=== PATIENT | female | born 1950 | race Caucasian/White ===

== ENCOUNTER 2024-08-05 11:48 | Outpatient (CLI) | payer MEDICARE, SELFPAY ==
[2024-08-05 13:30] LABS: Basophils Absolute Auto 0.1 K/mm3 (0.0-0.1); Eosinophils Absolute Auto 0.2 K/mm3 (0-0.3); Eosinophils Percent Auto 3.2 % (0-4.4); Hematocrit 41.5 % (37.0-47.0); Hemoglobin 13.7 g/dL (12.0-15.0); Immature Granulocyte Absolute 0.02 K/mm3 (0.00-0.031); Immature Granulocyte Percent A 0.3 % (0-0.5); Lymphocytes Absolute Auto 2.65 K/mm3 (0.9-3.2); Lymphocytes Percent Auto 36.4 % (18.3-44.2); Mean Corpuscular Hemoglobin 30.1 pg (26-34); Mean Corpuscular Volume 91.2 fl (80-100); Mean Platelet Volume 9.7 fl (7.4-10.4); Monocytes Absolute Auto 0.6 K/mm3 (0.1-0.6); Monocytes Percent Auto 8.8 % (2.6-8.5); Neutrophils Absolute Auto 3.7 K/mm3 (1.3-6.7); Neutrophils Percent Auto 50.3 % (45.5-73.1); Platelet Count Result 380 k/mm3 (150-375); Red Blood Count 4.55 M/mm3 (4.2-5.4); Red Cell Distribution Width 13.2 % (11.5-14.5); White Blood Count 7.3 K/mm3 (4.5-10.0)
[2024-08-05 13:49] LABS: Alanine Aminotransferase 38 U/L (6-35); Albumin Level 4.8 g/dL (3.5-5.1); Alkaline Phosphatase 104 U/L (38-126); Anion Gap 13 mmol/L (4-12); Aspartate Amino Transferase 56 U/L (14-36); Bilirubin,Total 0.8 mg/dL (0.2-1.3); Blood Urea Nitrogen 18 mg/dL (7-17); Calcium 9.9 mg/dL (8.4-10.2); Carbon Dioxide 23 mmol/L (22-30); Chloride 105 mmol/L (98-107); Cholesterol 138 mg/dL (0-200); Estimated Glomerular Filt Rate 41; Glucose 87 mg/dL (65-110); HDL Direct 49 mg/dL; Potassium 4.4 mmol/L (3.4-5.0); Sodium 141 mmol/L (137-145); Triglycerides 73 mg/dL (<150)
[2024-08-05 14:00] LABS: LDL Cholesterol Direct 60 mg/dL
[2024-08-05 14:25] LABS: Vitamin D 25 Hydroxy 35.6 ng/mL
[2024-08-05 14:57] LABS: Hemoglobin A1C 6.3 % (<5.7)
== END 2024-08-05 11:49 | disposition home or self-care (01) ==
PROVIDERS: PCP Clinical Nurse Specialist; Visit Provider Clinical Nurse Specialist
DX: R73.01 Impaired fasting glucose (principal); Z13.228 Encounter for screening for other metabolic disorders; E78.5 Hyperlipidemia, unspecified; I10 Essential (primary) hypertension; E07.9 Disorder of thyroid, unspecified; E55.9 Vitamin D deficiency, unspecified
CPT/HCPCS: 36415; 80053; 80061; 82306; 83036; 84443; 85025

== ENCOUNTER 2024-09-05 12:44 | Outpatient (CLI) | payer MEDICARE, SELFPAY ==
--- OUTSIDE RECORDS SUMMARY | 2024-09-05 12:47 | XMS_ITS | Encounter Summary ---
Author Organization [employer] Address 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
--- OUTSIDE RECORDS SUMMARY | 2024-09-05 12:47 | XMS_ITS | Encounter Summary ---
Author Organization [facility] Address [address] [place] [address] Care Team Providers Care Grain Operations Manager Name Role Phone Gloria Campbell MD Primary Care Provid er Encounter Details Date Type Department Care Team (Latest Contact Info) Description 11/12/2023 Lab Requisition [facility] General [facility] [place] [address] [place] [address] Gloria Campbell MD [address] [place] [address] Atherosclerotic heart disease of [place] coronary artery without angina pectoris; Hypertensive chronic kidney disease with stage 1 through stage 4 chronic kidney disease, or unspecified chronic kidney disease; Other chest pain; Shortness of breath Social History Tobacco Use Types Packs/Day Years Used Date Smoking Tobacco: Never Smokeless Tobacco: Never Alcohol Use Standard Drinks/Week Comments Yes 2 (1 standard drink = 0.6 oz pur e alcohol) occasionally Financial Resource Strain Answer Date R ecorded How hard is it for you to pa y for the very basics like food, housing, medical care, and heating? Not hard at all 11/04/2020 Food Insecurity Answer Date Recorded In the past 12 months, have you worried that your food would run out before you had money to buy more? Never true 11/04/2020 In the past 12 months, did y ou run out of food and didn't have money to buy more? Never true 11/04/2020 Transportation Needs Answer Date Record ed In the past 12 months, has l ack of transportation kept you from medical appointments or from getting medications? 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 Gender Identity Not on file Sexual Orientation Not on file Occupation Industry Job Start Date Job End Date Not on file Not on file Not on file Not on file documented as of this encounter Plan of Treatment Not on file documented as of this encounter Procedures Procedure Name Priority Date/Time Associated Diagnosis Comments D-DIMER Stat 11/12/2023 9:35 AM CDT Atherosclerotic heart disease of [place] coronary artery without angina pectoris Hypertensive chronic kidney disease with stage 1 through stage 4 chronic kidney disease, or unspecified chronic kidney disease Other chest pain Shortness of breath BRAIN NATRIURETIC PEPTIDE, BNP OR PROBNP Stat 11/12/2023 9:35 AM CDT Atherosclerotic heart disease of [place] coronary artery without angina pectoris Hypertensive chronic kidney disease with stage 1 through stage 4 chronic kidney disease, or unspecified chronic kidney disease Other chest pain Shortness of breath documented in this encounter Results * BRAIN NATRIURETIC PEPTIDE, BNP OR PROBNP (11/12/2023 9:35 AM CDT) PROBNP, N TERMINAL 101 <124 pg/mL 2023 11:36 AM CDT [facility] Comment: Reference values for screening purposes based on supervisor drying and softening's recommendation: Patients less than 75 years: <125 pg/mL Patients 75 years and older: <450 pg/mL Reference values for determination of acute congestive heart failure in dyspneic patients based on PRIDE study (Am J Cardiol 2005;95:948): Patients less than 50 years: <450 pg/mL (Negative predictive value= 99%) Patients 50 years and older: <900 pg/mL (Negative predictive value= 92%) Rule out cutpoint, all ages: <300 pg/mL (Negative predictive value= 99%) Blood 11/12/2023 9:35 AM CDT 11/12/2023 11:20 AM CDT Gloria Campbell MD CHEMISTRY ORDERABLES Final Result [facility] [employer] [facility] CLIA# [id number] [address] [place] [address] * D-DIMER (11/12/2023 9:35 AM CDT) D-DIMER QUANT <0.27 <0.50 ug/mL FEU 11/12/2023 11:37 AM CDT [facility] [employer] [facility] Blood 11/12/2023 9:35 AM CDT 11/12/2023 11:20 AM CDT Narrative [facility] [employer] [facility] - 11/12/2023 11:37 AM CDT D-Dimer assay cutoff value for exclusion of DVT and/or PE is <0.50 ug/mL FEU. As D-Dimer levels increase naturally with age, age stratification for patients over 50 is potentially more appropriate in determining whether a patient should undergo further evaluation for DVT and/or PE than a general cutoff of 0.50 ug/mL FEU. Clinical consideration is recommended. Age Stratified Cutoff Values: 50-60 years: 0.50-0.60 ug/mL FEU 61-70 years: 0.61-0.70 ug/mL FEU 71-80 years: 0.71-0.80 ug/mL FEU Gloria Campbell MD HEMATOLOGY ORDERABLE S Final Result [facility] [employer] [facility] CLIA# [id number] [address] [place] [address] documented in this encounter Visit Diagnoses Diagnosis Atherosclerotic heart disease of [place] coronary artery without angina pectoris Coronary atherosclerosis of [place] coronary artery Hypertensive chronic kidney disease with stage 1 through stage 4 chronic kidney disease, or unspecified chronic kidney disease Other chest pain Shortness of breath documented in this encounter Additional Health Concerns Assessment Noted Time PHQ-9 Depression Total Score: 2 10/08/19 24 8:49 AM CDT documented as of this encounter Care Teams Grain Operations Manager Relationship Specialty Start Date End Date Gloria Campbell MD [address] [place] [phone] PCP - General 08/01/12 07/10/24 documented as of this encounter
--- OUTSIDE RECORDS SUMMARY | 2024-09-05 12:47 | XMS_ITS | Encounter Summary ---
Author Organization [facility] Address [address] [place] [address] Care Team Providers Care Developer Advisor Name Role Phone Gloria Campbell MD Primary Care Provid er Encounter Details Date Type Department Care Team (Late st Contact Info) Description 08/24/2006 Outpatient Historical [facility] Support Services [address] [place] [address] Neal Acevedo MD 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
--- OUTSIDE RECORDS SUMMARY | 2024-09-05 12:47 | XMS_ITS | Encounter Summary ---
Author Organization [facility] Address 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 Gender Identity Not on file Sexual Orientation Not on file documented as of this encounter Plan of Treatment Not on file documented as of this encounter Procedures Procedure Name Priority Date/Time Associated Diagnosis Comments IGE Routine 01/31/2008 2:00 PM CDT XR CHEST PA AND LATERAL 2 VW Routine 01/31/2008 1:15 PM CDT XR SINUSES 3+ VW Routine 01/31/2008 1:15 PM CDT documented in this encounter Results * IGE (01/31/2008 2:00 PM CDT) IGE 8 <VB=603 kU/L [facility] Comment: Lab test performed by: [employer] [facility] [id number] [id number] ROBER FRAZIER MD Blood specimen (specimen) 01/31/2008 2:00 PM CDT 01/31/2008 2:01 PM CDT Narrative INTERFACE SYSTEM - 02/04/2008 8:07 PM CDT Call [phone] us History Conversion CHEMISTRY ORDERABLES Final Re sult INTERFACE SYSTEM Refer to clinic/hospital department [facility] CLIA# [id number] [address] [place] [address] * XR SINUSES 3+ VW (01/31/2008 1:15 PM CDT) Anatomical Region Laterality Modality Head Other 01/31/2008 1:15 PM CDT Narrative 01/31/2008 4:32 PM CDT [address] [address] Admit Date: 01/31/2008 DILLONCARLOS MeierINE Sex: F Admit Prov: DOCTOR, NOT O Date: 1950 Primary Care Prov: CLINT GARZA CMRN: [id number] Room: LAB-B SSN: [id number] IMAGING SERVICES Ordering Prov: N/A Accession Number: [id number] Interpretation SINUSES COMPLETE 01/31/2008 History: Allergy. 3 views of paranasal sinuses are performed. The frontal and ethmoid sinuses appear clear. The maxillary sinuses demonstrate no definite evidence of air-fluid level or acute process. Sphenoid sinuses are only seen on lateral view and appear clear. Conclusion: No definite evidence of sinusitis. If sinusitis is still suspected, screening sinus CT is recommended. . Dictated by: BALJIT JIMENES 01/31/2008 13:33 Electronically signed by: BALJIT JIMENES 01/31/2008 16:31 Transcribed: 01/31/2008 16:14 AMK Procedure Note Baljit Jimenes DO - 01/31/[address] [address] Admit Date: 01/31/2008 ANURAG CARRANZA Sex: F Admit Prov: DOCTOR, NOT O Date: 1950 Primary Care Prov: CLINT GARZA CMRN: [id number] Room: LAB-B SSN: [id number] IMAGING SERVICES Ordering Prov: N/A Interpretation SINUSES COMPLETE 01/31/2008 History: Allergy. 3 views of paranasal sinuses are performed. The frontal and ethmoidsinuses appear clear. The maxillary sinuses demonstrate no definite evidenceof air-fluid level or acute process. Sphenoid sinuses are only seen onlateral view and appear clear. Conclusion: No definite evidence of sinusitis. If sinusitis isstill suspected, screening sinus CT is recommended. . Dictated by: BALJIT JIMENES 01/31/2008 13:33 Electronically signed by: BALJIT JIMENES 01/31/2008 16:31 Transcribed: 01/31/2008 16:14 AMK us History Conversion DIAGNOSTIC IMAGING ORDERABLES Final Result * XR CHEST PA AND LATERAL (01/31/2008 1:15 PM CDT) Anatomical Region Laterality Modality Chest Other 01/31/2008 1:15 PM CDT Narrative 01/31/2008 2:20 PM CDT [place] [address] Admit Date: 01/31/2008 ANURAG CARRANZA Sex: F Admit Prov: DOCTOR, NOT O Date: 1950 Primary Care Prov: CLINT GARZA CMRN: [id number] Room: LAB-B SSN: [id number] IMAGING SERVICES Ordering Prov: N/A Accession Number: [id number] Interpretation CHEST, PA AND LATERAL, 01/31/08 History: 493.90, asthma. Findings: No infiltrate, pleural effusion or pneumothorax is present. Heart size, mediastinum and pulmonary vascularity are normal. Impression: No active pulmonary disease. . Dictated by: PHUC LOMELI 01/31/2008 13:34 Electronically signed by: PHUC LOMELI 01/31/2008 14:19 Transcribed: 01/31/2008 13:41 LE Procedure Note Phuc Lomeli MD - 01/31/2008 [facility] [address] [address] Admit Date: 01/31/2008 ANURAG CARRANZA Sex: F Admit Prov: DOCTOR, NOT O Date: 1950 Primary Care Prov: CLINT GARZA CMRN: [id number] [facility] [id number] [facility] Ordering Prov: N/A Interpretation CHEST, PA AND LATERAL, 01/31/08 History: 493.90, asthma. Findings: No infiltrate, pleural effusion or pneumothorax is present.Heart size, mediastinum and pulmonary vascularity are normal. Impression: No active pulmonary disease. . Dictated by: PHUC LOMELI 01/31/2008 13:34 Electronically signed by: PHUC LOMELI 01/31/2008 14:19 Transcribed: 01/31/2008 13:41 LE us History Conversion DIAGNOSTIC IMAGING ORDERABLES Final Result documented in this encounter Visit Diagnoses Diagnosis Unspecified asthma(493.90) Unspecified asthma documented in this encounter Care Teams Airport Shuttle Driver Relationship Specialty Start Date End Date Gloria Campbell MD [address] [place] [address] PCP - General 08/01/12 07/10/24 documented as of this encounter
--- OUTSIDE RECORDS SUMMARY | 2024-09-05 12:47 | XMS_ITS | Encounter Summary ---
Author Organization [employer] Address 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
--- OUTSIDE RECORDS SUMMARY | 2024-09-05 12:47 | XMS_ITS | Encounter Summary ---
Author Organization [facility] Address 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 Gender Identity Not on file Sexual Orientation Not on file documented as of this encounter Plan of Treatment Not on file documented as of this encounter Procedures Procedure Name Priority Date/Time Associated Diagnosis Comments MAMMO SCREEN BILAT W OR WO CAD Timed Study 10/17/2007 9:14 AM CDT documented in this encounter Results * MAMMO DIGITAL SCREEN BILAT (10/17/2007 9:14 AM CDT) Anatomical Region Laterality Modality Breast Bilateral Other 10/17/2007 9:14 AM CDT Narrative 10/24/2007 11:26 AM CDT [address] [address] Imaging Services Procedure Completion Date Ordering Provider Accession Number Mamm Digital 10/17/2007 9:14:36 JUAN OATES [id number] Screening AM Reason for Exam: V76.12 - SCREEN MAMMOGRAM NEC Addendum Since the prior report, the patient's previous mammograms from [place], [place] have become available for review. These are dated 04/29/1999. The current study shows some asymmetrically dense tissue superiorly on the oblique view. Pattern is unchanged since 1998. There is no evidence of malignancy. Conclusion: No mammographic evidence of malignancy No change since films from [place], [place] dated April 1999. Recommendations: The patient should resume screening mammography in October 2008 Overall assessment: BIRADS category 1 - Negative Assessment BIRADS: 1-Negative Recommendation: Normal interval follow-up Dictated by: JERAMIE TO Electronically signed by: JERAMIE TO 10/24/2007 11:26 Transcribed: 10/24/2007 10:03 AMK Interpretation BILATERAL FULL FIELD DIGITAL SCREENING MAMMOGRAM WITH COMPUTER AIDED DIAGNOSIS, 10/17/2007 History: Routine screening. Technique: Craniocaudal and mediolateral oblique projections of both breasts were obtained using full field digital mammography. CAD was Admit Date: 10/17/2007 ANURAG CARRANZA Sex: F Admitting MD: JUAN OATES Birthdate: 1950 agricultural inspector:JUAN OATES CMRN:[id number] Room: [facility]: [id number] [place] [address] Imaging Services Procedure Completion Date Ordering Provider Accession Number Mamm Digital 10/17/2007 9:14:36 JUAN OATES [id number] Screening AM utilized. No prior studies are available for comparison at this institution. Breast Composition: Heterogeneously dense, which lowers the sensitivity of mammography. Findings: An asymmetry is identified in the upper aspect of the right breast on the mediolateral oblique projection. It is recommended the patient's old films be obtained to assess for the stability of this finding. No other dominant masses, areas of asymmetry, or suspicious clustered microcalcifications are identified within either breast. The CAD system detects no other significant abnormalities. Overall Assessment: BI-RADS Category: 0. Needs additional imaging evaluation. Recommendation: It is recommended the patient's old films be obtained to assess for the stability of the asymmetry in the upper aspect of the right breast on the mediolateral oblique projection. Report revised on 10/24/2007 11:26:21 AM by JERAMIE TO Assessment BIRADS: 0-Incomplete: Need additional imaging evaluation Recommendation: Old films for comparison Dictated by: GISELLE OLSON Electronically signed by: GISELLE OLSON 10/18/2007 15:15 Transcribed: 10/18/2007 14:51 DKT Admit Date: 10/17/2007 DILLON ANURAG Sex: F Admitting MD: JUAN OATES Birthdate: 1950 agricultural inspector:JUAN OATES CMRN:[id number] Room: [facility]: [id number] Procedure Note Giselle Olson / Jeramie To MD - 10/24/[address] [address] Imaging Services Procedure Completion Date Ordering Provider AccessionNumber Mamm Digital 10/17/2007 9:14:36 JUAN OATES [id number] Screening AM Reason for Exam: V76.12 - SCREEN MAMMOGRAM NEC Addendum Since the prior report, the [place] previous [place] become available for review. These are dated106/29/1998. The current study shows some asymmetrically dense tissue superiorlyon the oblique view. Pattern is unchanged since 1998. There is no evidenceof malignancy. Conclusion: No mammographic evidence of malignancy No change since films from [place], [place] dated April1999. Recommendations: The patient should resume screening mammography inMay 2008 Overall assessment: BIRADS category 1 - Negative Assessment BIRADS: 1-Negative Recommendation: Normal interval follow-up Dictated by: JERAMIE TO Electronically signed by: JERAMIE TO 10/24/2007 11:26 Transcribed: 10/24/2007 10:03 AMK Interpretation BILATERAL FULL FIELD DIGITAL SCREENING MAMMOGRAM WITH COMPUTERAIDED DIAGNOSIS, 10/17/2007 History: Routine screening. Technique: Craniocaudal and mediolateral oblique projections ofboth breasts were obtained using full field digital mammography. CAD was Admit Date: 10/17/2007 ANURAG CARRANZA Sex: F Admitting MD: JUAN OATES Birthdate: 1950 agricultural inspector:[facility] OATES [id number]: [id number] [facility] [address] [place] [address] Imaging Services Procedure Completion Date Ordering Provider AccessionNumber Mamm Digital 10/17/2007 9:14:36 JUAN OATES [id number] Screening AM utilized. No prior studies are available for comparison at this institution. Breast Composition: Heterogeneously dense, which lowers thesensitivity of mammography. Findings: An asymmetry is identified in the upper aspect of theright breast on the mediolateral oblique projection. It is recommendedthe patient's old films be obtained to assess for the stability of this finding. No other dominant masses, areas of asymmetry, orsuspicious clustered microcalcifications are identified within either breast.The CAD system detects no other significant abnormalities. Overall Assessment: BI-RADS Category: 0. Needs additional imaging evaluation. Recommendation: It is recommended the patient's old films be obtainedto assess for the stability of the asymmetry in the upper aspect of theright breast on the mediolateral oblique projection. Report revised on 10/24/2007 11:26:21 AM by JERAMIE TO Assessment BIRADS: 0-Incomplete: Need additional imagingevaluation Recommendation: Old films for comparison Dictated by: GISELLE OLSON Electronically signed by: GISELLE OLSON 10/18/2007 15:15 Transcribed: 10/18/2007 14:51 DKT Admit Date: 10/17/2007 ANURAG CARRANZA Sex: F Admitting MD: JUAN OATES Birthdate: 1950 agricultural inspector:JUAN OATES CMRN:[id number] Room: [facility]: [id number] Juan Oates MD MAMMO ORDERABLES Edited documented in this encounter Visit Diagnoses Diagnosis Other screening mammogram documented in this encounter Care Teams Strategic Partnership Representative Relationship Specialty Start Date End Date Gloria Campbell MD [address] [place] [address] PCP - General 08/01/12 07/10/24 documented as of this encounter
--- OUTSIDE RECORDS SUMMARY | 2024-09-05 12:47 | XMS_ITS | Clinical Summary ---
Author Organization [facility] Address [address] [place] [address] Phone Care Team Providers Care Wrist Hemmer Name Role Phone Unavailable Primary Care Provider Unavailabl e Allergies Active Allergy Reactions Criticality Noted Date Comments Codeine Unknown 04/25/2013 Hydrocodone-Acetaminophen Rash,Itching Low 02/07/20 18 Medications aspirin (ANTHONY CHEWABLE) 81 mg Tablet, Chewable Take 81 mg by mouth daily. Active Syringe with Needle, Disp, (BD Luer-Marino Syringe) 3 mL 25 gauge x 1 Syringe Use 1 syringe monthly 12 Each 1 11/24/19 20 Active magnesium citrate 100 mg TabletIndication s:Benign hypertension with CKD (chronic kidney disease) stage III (CMS/HCC),Leg cramps Take 200 mg by mouth 2 times daily with meals. 60 Tablet 2 02/18/20 20 Active Additional Information Patient taking differently: 165 mgOral,(No frequency reported), Takes 2 gummies (165mg each) in the morning, Reported on 01/22/2023 albuterol sulfate HFA 90 mcg/actuation aerosol inhalerIndicatio ns:Dyspnea, unspecified type TAKE 2 PUFFS EVERY 6 HOURS NEEDED FOR SHORTNESS OF BREATH. 8.5 Gram 11/11/19 23 Active hydroCHLOROthiaz dot 25 mg tabletIndication s:Benign hypertension with stage 3b chronic kidney disease (CMS/HCC) take 1 tablet daily 90 Tablet 3 06/15/19 24 Active topiramate (Topamax) 25 mg tabletIndication s:Obesity (BMI 30.0-34.9) One po nightly x 1 wk, then 2 po nightly x 1 wk, then 3 po nightly x 1 wk, then 4 po nightly, then fill next prescription 70 Tablet 10/08/19 24 Active hydrocortisone (HYTONE) 2.5 % Lotion Apply to affected area 2 times daily. Face for 4 weeks 59 mL 1 10/31/19 24 Active doxycycline hyclate (VIBRAMYCIN) 100 mg capsule Take 1 Capsule (100 mg) by mouth daily. 30 Capsule 01/02/20 24 Active atorvastatin (LIPITOR) 80 mg tabletIndication s:Dyslipidemia Take 1 Tablet (80 mg) by mouth daily with supper. 30 Tablet 07/11/19 25 Active amLODIPine (NORVASC) 5 mg tabletIndication s:Benign hypertension with CKD (chronic kidney disease) stage III (CMS/HCC) Take 1 Tablet (5 mg) by mouth daily. 30 Tablet 07/11/19 25 Active levothyroxine 75 mcg tablet Take 1 Tablet (75 mcg) by mouth daily in the morning. 30 Tablet 07/11/19 25 Active busPIRone (BUSPAR) 5 mg tabletIndication s:Situational anxiety TAKE 1 TABLET THREE TIMES DAILY 270 Tablet 07/11/19 25 Active gemfibroziL (LOPID) 600 mg tabletIndication s:Dyslipidemia TAKE ONE TABLET TWICE DAILY 30 MINUTES BEFORE MORNING & EVENING MEAL 60 Tablet 07/11/19 25 Active losartan (COZAAR) 100 mg tabletIndication s:Benign hypertension with stage 3b chronic kidney disease (CMS/HCC) Take 1 Tablet (100 mg) by mouth daily. 30 Tablet 07/11/19 25 Active mirtazapine (REMERON) 15 mg tabletIndication s:Neurodermatiti s Take 1 Tablet (15 mg) by mouth daily at bedtime. For neurodermatitis 30 Tablet 07/11/19 25 Active topiramate (Topamax) 100 mg tabletIndication s:Obesity (BMI 30.0-34.9) Take 1 Tablet (100 mg) by mouth daily at bedtime. 30 Tablet 07/11/19 25 Active traZODone (DESYREL) 50 mg tabletIndication s:Major depressive disorder, recurrent, moderate (CMS/HCC),Adjust ment insomnia Take 1 Tablet (50 mg) by mouth daily at bedtime. 30 Tablet 07/11/19 25 Active venlafaxine (EFFEXOR XR) 75 mg Extended Release 24 hour capsuleIndicatio ns:Situational anxiety,Major depressive disorder, recurrent, moderate (CMS/HCC) TAKE 3 CAPSULES DAILY 90 Capsule 07/11/19 25 Active tirzepatide, weight loss, (Zepbound) 2.5 mg/0.5 mL Pen InjectorIndicati ons:Obesity (BMI 30.0-34.9) Inject 2.5 mg by subcutaneous injection every 7 days. 2 mL 07/11/19 25 Active fluticasone propion-salmeter oL (Advair Diskus) 250-50 mcg/dose disk inhalerIndicatio ns:Mild persistent asthma without complication Take 1 Puff by inhalation 2 times daily. Rinse mouth after use 60 Each 07/11/19 25 Active ezetimibe (ZETIA) 10 mg tablet Take 1 Tablet (10 mg) by mouth daily. 30 Tablet 07/11/19 25 Active cyanocobalamin (VITAMIN B-12) 1,000 mcg/mL SolutionIndicati ons:Other vitamin B12 deficiency anemia Inject 1 mL (1,000 mcg) by intramuscular injection every 30 days. 1 mL 07/11/19 25 Active Active Problems Patient Care Coordination No te Formatting of this note migh t be different from the original. [facility] 08-11-16 MLM Richard-SPOUSE, KEL BORGES-DAUGHTER Java Support Engineer-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 Rodriguez does not feel she had stroke but has this in the brain Coronary artery calcification seen on CT scan Overview (11/04/2020): cta chest 06/23/20; nl stress test '17. Hyperopia of both eyes 03/09/2020 Combined forms of age-related cataract of both e yes 03/09/2020 History of colon polyps 04/15/2019 Overview (04/24/2022): 04/2022: nl, 5 yr. 04/2019: tubular adenomas. Rpt in 3 yrs Osteopenia of multiple sites 03/06/2019 Overview (02/15/2023): 02/15/2023 penia, rpt 5 yrs. 03/2019: The 10 year risk of a major osteoporotic fracture is 16%. The 10 year risk of a hip fracture is 2.3%. 1. Low bone mineral density. Osteopenia by WHO criteria. 2. Recommend follow-up examination in 3 yrs Laceration of right Achilles tendon 02/07/2018 Mitral regurgitation 08/14/2016 H/O syncope 08/11/2016 Overview (02/11/2020): 02/2020: nl carotids. Mid , uncertain etiology, cardiac stress, echo, carotids all ok. Sl abnl holter done. See cardiology Prediabetes 07/14/2016 Family history of coronary artery disease 2016 Overview (07/14/2016): Mother at 48, father at 67 Situational anxiety 01/07/2016 Overview (09/24/2018): Related to work Mild persistent asthma without complication 06/05 Overview (01/07/2016): Sx since 50 yo, but pt had reassuring pft and neg methacholine challenge 08/2015 Allergic rhinitis due to pollen 06/25/2015 Occupational exposure to dust 06/18/2015 Overview (06/18/2015): Powders: Gold moore, miralax, foot powder, etc Concussion without loss of consciousness 014 Overview (03/26/2014): No direct blow to head, but likely contra-coup injury after falling Neurodermatitis 10/31/2013 Overview (09/24/2018): Dr Rodriguez has eval pt 09/2018 and feels most likely due to brachioradial pruritis. Usually bilat arms; Dr Lyn suspects her itching is neuropathic in origin and also influenced by her anxiety / depression. He suggested gabapentin change and see neuro Glenoid fracture of right shoulder 05/20/2013 Other vitamin B12 deficiency anemia 05/06/2012 Stage 3b chronic kidney disease 04/18/2012 Benign hypertension with stage 3b chronic kidney disease 04/05/2012 Overview (07/28/2016): 07/28/2016 echo: 60%. Impaired LV diastolic relaxation. Mild mitral and tricuspid regurgitation Hypothyroidism due to acquired atrophy of thyroi d 10/20/2011 Other acne 06/23/2011 Scar condition and fibrosis of skin 06/23/2011 Primary localized osteoarthrosis, lower leg 1009/2010 Major depressive disorder, recurrent, moderate 0 12/31/2009 Allergic rhinitis due to dust mite 12/24/2009 Dyslipidemia 07/30/2009 Resolved Problems Problem Noted Date Diagnosed Date Resolved Date History of CVA (cerebrovascular accident) 02/02/2020 11/04/2020 Overview (02/27/2020): Thought to have R frontal infarct September: MRI of brain on 07/30/2018, Saw Dr Rodriguez. Rpt MRI brain 02/2020 shows signal abnormality previously described within the right frontal lobe is due to a venous angioma and not an old infarct. Chronic small vessel ischemic disease appears grossly unchanged. Near syncope 08/14/2016 09/24/2018 Benign hypertension 08/14/2016 03/13/20 18 Actinic keratosis 09/07/2011 09/24/2018 Chronic airway obstruction, not elsewhere classified 05/26/2010 01/07/2016 Encounters Date Type Department Care Team Description 08/27/2024 Refill [facility] [address] [place] [address] Gloria Campbell MD Obesity (BMI 30.0-34.9) 08/09/2024 External Device Data STL ABSTRACTION Provider, Abstract 2024 External Device Data STL ABSTRACTION Provider, Abstract 07/28/2024 Medication Prior Auth Encounter [facility] Prescription Management Dept [address] [place] [address] Stef Munoz, PHARMACIST 07/11/2024 Telephone [facility] [address] [place] [address] Gloria Campbell MD Information; Medication Refill 07/01/2024 External Device Data STL ABSTRACTION Provider, Abstract from Last 3 Months Immunizations Immunization Administration Dates Next Due (ADACEL/BOOSTRIX)(10 YR UP) TDAP VACCINE, 0.5ML, IM 02/02/2018 (HAVRIX/VAQTA)(19 YRS UP) HE PATITIS A VACCINE ADULT DOSAGE 1 ML IMM 04/27/2020,03/20/2019 (PFIZER)(12 YR UP) COVID-19 VACCINE - EMERGENCY USE AUTHORIZATION, MRNA, [id number](PF) 30 MCG/0.3 ML IM SUSP 03/16/2021,08/28/2020,08/07/2020 (PNEUMOVAX 23)(50 YRS UP) PN EUMOCOCCAL POLYSACCHARIDE (PPV23) 0.5 ML, IM 01/16/2022,09/16/2010 (PREVNAR 13)(6 WKS UP) PNEUM OCOCCAL CONJUGATE (PCV13) 0.5 ML, IM 01/07/2016 (SHINGRIX)(50 YRS UP) ZOSTER VACCINE RECOMBINANT, 0.5 ML, IM 03/10/2023 INFLUENZA VACCINE HIGH DOSE QUADRIVALENT 65 YR UP PF IM 02/02/2020 INFLUENZA VACCINE QUADRIVALE NT ADJ 65 YR UP PF IM 03/10/2023,03/01/2022 Influenza Seasonal Unspecifi ed Formulation IM 03/06/2021,03/06/2017,04/10/2015,03/21,03/12/2012 Influenza Vaccine High Dose 65+ Yrs IM 9,03/13/2018 Zoster Vaccine Live SQ 09/16/2010 Family History Medical History Relation Name Comments Thyroid Disease Brother Allergic Rhinitis Father Aneurysm Father Aortic Heart Disease Father Hypertension Father Stroke Father Emphysema Mother Heart Disease Mother Heart Failure Mother Hypertension Mother Thyroid Disease Mother Thyroid Cancer Other Thyroid Disease Sister 1 X 5 Thyroid Cancer Sister 2 not medullary Breast Cancer Neg Hx Relation Name Status Comments Brother Father Mother Other Sister 1 X 5 Alive Sister 2 Alive Social History Tobacco Use Types Packs/Day Years Used Date Smoking Tobacco: Never Smokeless Tobacco: Never Tobacco Cessation:Counseling Given: Not Answered Alcohol Use Standard Drinks/Week Comments Yes 2 [...] on file 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 Gender Identity Not on file Sexual Orientation Not on file Occupation Industry Job Start Date Job End Date Not on file Not on file Not on file Not on file Last Filed Vital Signs Vital Sign Reading Time Taken Comments Blood Pressure 140/80 01/02/2024 2:50 PM CDT Pulse 70 11/12/2023 7:56 AM CDT Temperature 36.9 C (98.5 F) 08/23/2023 9:45 AM CDT Respiratory Rate 18 08/23/2023 9:45 AM CDT Oxygen Saturation 97% 11/12/2023 7:56 AM CDT Inhaled Oxygen Concentration - - Weight 74.4 kg (164 lb) 11/12/2023 7:56 AM CDT Height 152.4 cm (5') 11/12/2023 7:56 AM CDT Body Mass Index 32.03 11/12/2023 7:56 AM CDT Plan of Treatment Health Maintenance Due Date Last Done Comments FIT-DNA Q 3 years 08/09/1995 FIT/FOBT Q 1 year 08/09/1995 Flex Sig/CT Colonography Q 5 years 08/09/1995 RSV VACCINE (60+ or ) (1 - Risk 60-74 years 1-dose series) 2010 ZOSTER VACCINE (3 of 3) 05/05/2023 03/10/2023, 09/16 INFLUENZA VACCINE (#1) 2024 , 03/01/2022, 03/06/2021, Additional history exists COVID-19 Vaccine (4 - 2023-2 5 season) 2024 03/16/2021, 08/28/2020, 08/07/2020 BREAST CANCER SCREENING 03/06/2024 03/06/20 23, 02/14/2023, 07/30/2018, Additional history exists [place] Ad[place] ([place]) Preventative Visit/Annual Wellness Visit 06/04/2024 10/08/2023, 01/22/2023, 01/16/2022, Additional history exists COLORECTAL SCREENING 04/24/2027 04/24/2022, 04/24/2022, 04/02/2019, Additional history exists Colorectal Cancer Screening 04/24/2027 DTAP/TDAP/TD VACCINES (2 - T d or Tdap) 02/03/2028 02/02/2018 PNEUMOCOCCAL VACCINE 50+ YEARS Completed 0 01/16/2022, 01/07/2016, 09/16/2010 OSTEOPOROSIS SCREENING Completed 02/14/2023, 2018 Procedures Procedure Name Priority Date/Time Associated Diagnosis Comments MAMMO DIAG UNI RIGHT 3D LIZETH W OR WO CAD Routine 03/06/2023 1:47 PM CDT Abnormal mammogram of right breast Breast asymmetry XR DEXA BONE DENSITY AXIAL 1 OR MORE SITES Routine 02/14/2023 10:47 AM CDT Osteopenia of multiple sites Postmenopausal COLONOSCOPY REPORT 04/24/2022 9: 22 AM WELDER APPRENTICE from Last 3 Months or Most Recently Relevant to Health Maintenance Results * MAMMO DIAG UNI RIGHT 3D LIZETH W OR WO CAD (03/06/2023 1:47 PM CDT) Anatomical Region Laterality Modality Breast Right Mammography 03/06/2023 1:47 PM CDT Impressions 03/06/2023 2:58 PM CDT IMPRESSION: Small cyst with benign features at the 10:00 position of the right breast. Recommendation: Annual mammography is recommended. DICTATION LOCATION: [facility] 03/06/2023 2:58 PM CDT RIGHT UNILATERAL FULL-FIELD DIGITAL DIAGNOSTIC MAMMOGRAM WITH 3-D TOMOSYNTHESIS AND CAD RIGHT BREAST ULTRASOUND LIMITED DATE: 03/06/2023 2:19 PM HISTORY: Abnormal screening mammogram with a possible mass in the lateral aspect of the right breast. COMPARISON: October 2007 through February 2023 BREAST COMPOSITION: The breasts are heterogeneously dense, which may obscure small masses. FINDINGS: Right unilateral mammogram: A small mass persists along the posterior glandular margin in the lateral aspect of the right breast near the 9:00 to 10:00 position. Margins are partially circumscribed and partially obscured. No associated microcalcifications are seen. Ultrasound is recommended for further characterization. CAD is utilized. Right breast ultrasound: Targeted ultrasound was performed through the lateral aspect of the right breast. There is a small anechoic cyst with benign features at the 10:00 position of the right breast when scanning 8 cm from the nipple which is situated along the posterior aspect of the glandular tissues. The cyst measures 5 mm in diameter and corresponds to the new mass on the mammogram. This is considered benign. No suspicious solid masses appreciated. Overall assessment: BI-RADS Category 2: Benign findings Procedure Note Landon Trevino MD - 03/06/2023 RIGHT UNILATERAL FULL-FIELD DIGITAL DIAGNOSTIC MAMMOGRAM WITH 3-D TOMOSYNTHESIS AND CAD RIGHT BREAST ULTRASOUND LIMITED DATE: 03/06/2023 2:19 PM HISTORY: Abnormal screening mammogram with a possible mass in the lateral aspect of the right breast. COMPARISON: October 2007 through February 2023 BREAST COMPOSITION: The breasts are heterogeneously dense, which may obscure small masses. FINDINGS: Right unilateral mammogram: A small mass persists along the posterior glandular margin in the lateral aspect of the right breast near the 9:00 to 10:00 position. Margins are partially circumscribed and partially obscured. No associated microcalcifications are seen. Ultrasound is recommended for further characterization. CAD is utilized. Right breast ultrasound: Targeted ultrasound was performed through the lateral aspect of the right breast. There is a small anechoic cyst with benign features at the 10:00 position of the right breast when scanning 8 cm from the nipple which is situated along the posterior aspect of the glandular tissues. The cyst measures 5 mm in diameter and corresponds to the new mass on the mammogram. This is considered benign. No suspicious solid masses appreciated. Overall assessment: BI-RADS Category 2: Benign findings IMPRESSION: Small cyst with benign features at the 10:00 position of the right breast. Recommendation: Annual mammography is recommended. DICTATION LOCATION: [facility] us Gloria Campbell MD MAMMO ORDERABLES Fin al Result * XR DEXA BONE DENSITY AXIAL 1 OR MORE SITES (02/14/2023 10:47 AM CDT) Anatomical Region Laterality Modality Other 02/14/2023 10:4 7 AM CDT Impressions 02/14/2023 11:40 AM CDT IMPRESSION: Low bone mineral density with increased fracture risk. Osteopenia by WHO criteria. FOLLOW-UP RECOMMENDATIONS: Patients without high risk factors for osteoporosis: T-score -1.0 to -1.5 - Consider repeat BMD in 5-10 years T-score -1.5 to -2.0 - Consider repeat BMD in 3-5 years T-score -2.0 to - 2.5 - Consider repeat BMD every 2 years Patients on treatment for osteoporosis: 1-2 years after initiation of treatment and every 2 years thereafter TREATMENT: NOF [place] recommendations: 1. Adequate intake of Calcium and Vitamin D 2. Treatment of Vitamin D deficiency 3. Regular weight bearing and muscle strengthening exercises. 4. Fall prevention. 5. Tobacco use cessation and avoidance of excessive alcohol. NOF Pharmacologic Therapy Guidelines: Postmenopausal females and men age 50 and older presenting with the following should be treated: 1. A known hip or vertebral fracture. 2. A T-score </= -2.5 at the femoral neck, total hip or lumbar spine. 3. A T-score between -1.0 and -2.5, and a WHO 10-year probability of a hip fracture >3% or a 10-year probability of a major osteoporosis related fracture >20% based on the WHO algorithm. This is based on FRAX (Fracture Risk Assessment Tool) data. This tool can be found at www.shef.ac.uk/FRAX/tool.aspx DICTATION LOCATION: Location 2 - [facility] Narrative 02/14/2023 11:40 AM CDT EXAM: XR DEXA BONE DENSITY AXIAL 1 OR MORE SITES DATE: 02/14/2023 10:47 AM HISTORY: 72-year-old woman with osteopenia TECHNIQUE: Planar images were obtained of the lumbar spine and left hip using a Hologic DEXA scanner for bone mineral density determination PERFORMING LOCATION: [place], [place], [address] QUALITY OF EXAM: L4 was considered an outlier and was not used in the lumbar spine analysis REGION: L1-L3 Lumbar Spine: 0.962 g/cm2; T-score: -0.5; Z-score: 1.7 Femoral neck: 0.613 g/cm2; T-score: -2.1; Z-score: -0.2 Total Hip: 0.826 g/cm2; T-score: -1.0; Z-score: 0.7 COMPARISON: Compared to 03/05/2019, there is 1.7% increased bone mineral density of the lumbar spine, and 3.0% decreased bone mineral density of the total hip. FRAX: Calculated 10 year fracture risk for major osteoporotic fracture is 12% and for hip fracture is 2.6%. Procedure Note Samantha Rzizo MD - 02/14/2023 EXAM: XR DEXA BONE DENSITY AXIAL 1 OR MORE SITES DATE: 02/14/2023 10:47 AM HISTORY: 72-year-old woman with osteopenia TECHNIQUE: Planar images were obtained of the lumbar spine and left hip using a Hologic DEXA scanner for bone mineral density determination PERFORMING LOCATION: [place], [place], [address] QUALITY OF EXAM: L4 was considered an outlier and was not used in the lumbar spine analysis REGION: L1-L3 Lumbar Spine: 0.962 g/cm2; T-score: -0.5; Z-score: 1.7 Femoral neck: 0.613 g/cm2; T-score: -2.1; Z-score: -0.2 Total Hip: 0.826 g/cm2; T-score: -1.0; Z-score: 0.7 COMPARISON: Compared to 03/05/2019, there is 1.7% increased bone mineral density of the lumbar spine, and 3.0% decreased bone mineral density of the total hip. FRAX: Calculated 10 year fracture risk for major osteoporotic fracture is 12% and for hip fracture is 2.6%. IMPRESSION: Low bone mineral density with increased fracture risk. Osteopenia by WHO criteria. FOLLOW-UP RECOMMENDATIONS: Patients without high risk factors for osteoporosis: T-score -1.0 to -1.5 - Consider repeat BMD in 5-10 years T-score -1.5 to -2.0 - Consider repeat BMD in 3-5 years T-score -2.0 to - 2.5 - Consider repeat BMD every 2 years Patients on treatment for osteoporosis: 1-2 years after initiation of treatment and every 2 years thereafter TREATMENT: NOF [place] recommendations: 1. Adequate intake of Calcium and Vitamin D 2. Treatment of Vitamin D deficiency 3. Regular weight bearing and muscle strengthening exercises. 4. Fall prevention. 5. Tobacco use cessation and avoidance of excessive alcohol. NOF Pharmacologic Therapy Guidelines: Postmenopausal females and men age 50 and older presenting with the following should be treated: 1. A known hip or vertebral fracture. 2. A T-score </= -2.5 at the femoral neck, total hip or lumbar spine. 3. A T-score between -1.0 and -2.5, and a WHO 10-year probability of a hip fracture >3% or a 10-year probability of a major osteoporosis related fracture >20% based on the WHO algorithm. This is based on FRAX (Fracture Risk Assessment Tool) data. 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 Procedure: Informed consent was obtained for the procedure, including moderate sedation after risks were discussed. Based on the pre-procedure assessment, including review of the patient's medical history, medications, allergies, and review of systems, the patient was deemed to be an appropriate candidate for sedation. A timeout was performed. Continuous ECG monitoring, pulse oximetry, blood pressure monitoring, and direct observation were performed. The Colonoscope was introduced through the anus and advanced to the cecum, identified by appendiceal orifice and ileocecal valve. The colonoscopy was performed without difficulty. The patient tolerated the procedure well. The quality of the bowel preparation was excellent. The terminal ileum, ileocecal valve, appendiceal orifice, and rectum were photographed. Estimated Blood Loss: Estimated blood loss: none. Findings: The perianal and digital rectal examinations were normal. The colon (entire examined portion) appeared normal. Multiple small-mouthed diverticula were found in the sigmoid colon, descending colon and transverse colon. The exam was otherwise without abnormality on direct and retroflexion views. Impression: - The entire examined colon is normal. - Diverticulosis in the sigmoid colon, in the descending colon and in the transverse colon. - The examination was otherwise normal on direct and retroflexion views. - No specimens collected. Recommendation: - Resume previous diet. - Continue present medications. - Repeat colonoscopy in 5 years for surveillance. Procedure Code(s): --- Professional --- 93841 Diagnosis Code(s): --- Professional --- Z86.010 K57.30 CPT copyright 2020 [employer]. All rights reserved. The codes documented in this report are preliminary and upon dog trainer review may be revised to meet current compliance requirements. Neal Martel MD 04/24/2022 9:21:31 AM This report has been signed electronically. Number of Addenda: [id number], [place] [phone] [place] Neal Martel MD GI PROCEDURE ORDERABL ES Final Result from Last 3 Months or Most Recently Relevant to Health Maintenance Insurance RX [employer] Medicare Part D MEDICARE COMPLETE HMO POS Advance Directives For more information, please contact: [phone] * Full Code (Latest Code Status on File) Date Activated Date Inactivated Comments 04/24/2022 7:46 AM 04/24/2022 12:01 PM * Full Code Date Activated Date Inactivated Comments 02/07/2018 7:34 AM 02/07/2018 2:33 PM
[2024-09-05 14:46] LABS: Alanine Aminotransferase 38 U/L (6-35); Albumin Level 4.7 g/dL (3.5-5.1); Alkaline Phosphatase 103 U/L (38-126); Anion Gap 12 mmol/L (4-12); Aspartate Amino Transferase 52 U/L (14-36); Bilirubin,Total 0.6 mg/dL (0.2-1.3); Blood Urea Nitrogen 17 mg/dL (7-17); Calcium 9.6 mg/dL (8.4-10.2); Carbon Dioxide 27 mmol/L (22-30); Chloride 100 mmol/L (98-107); Estimated Glomerular Filt Rate 40; Glucose 93 mg/dL (65-110); Potassium 3.7 mmol/L (3.4-5.0); Sodium 139 mmol/L (137-145)
== END 2024-09-05 12:45 | disposition home or self-care (01) ==
PROVIDERS: PCP Clinical Nurse Specialist; Visit Provider Clinical Nurse Specialist
DX: R94.4 Abnormal results of kidney function studies (principal); R74.01 Elevation of levels of liver transaminase levels
CPT/HCPCS: 36415; 80053

== ENCOUNTER 2024-11-20 09:39 | Emergency (ER) | payer MEDICARE, SELFPAY ==
--- NOTE | ~2024-11-20 | CT_ITS ---
EXAMINATION: CT abdomen pelvis w con DATE: 11/20/2024 11:13 INDICATION: Left lower quadrant abdominal pain TECHNIQUE: Computed tomography (CT) of the abdomen and pelvis was performed with 100 mL Omnipaque-350 intravenous contrast. Automated exposure control and iterative reconstruction technique were employe d. The dose-length product was 680.35 mGy-cm. COMPARISON: None FINDINGS: Small calcified nodule consistent with old granulomatous disease within a region of atelectasis at th e basilar right middle lobe. Reticular opacities at the bilateral lung bases which could represent at electasis versus mild chronic interstitial lung disease. Heart size is normal. Atherosclerotic grace ry artery calcifications . Aortic valve calcification. No pericardial or pleural effusion. Small slid ing-type hiatal hernia. Liver, gallbladder, spleen, pancreas, bilateral adrenal glands and kidneys ar e normal. Small calcified nodule at the anterior uterus consistent with chronic degenerated uterine f ibroid. Bladder and bilateral adnexa are unremarkable. Mild diverticulosis with descending and sigmoi d colon predominance with inflammatory stranding surrounding a diverticulum at the junction of the de scending and sigmoid colon consistent with diverticulitis. Small bowel and appendix are normal. No ab scess or free intraperineal gas or fluid. Small bilateral fat-containing inguinal hernias. Mild lumba r levocurvature with mild to moderate spondylosis. IMPRESSION: 1. Radiographically uncomplicated diverticulitis. Reviewed, dictated and finalized at location A.
[2024-11-20 09:43] VITALS: BP 145/93; PULSE 86; RESP 18; TEMP 36.4; O2SAT 97
--- NOTE | 2024-11-20 10:02 | ED_ITS ---
HPI - Abdominal Pain General Chief Complaint: Abdominal Pain Stated Complaint: LLQ ABD PAIN X3D Time Seen by Provider: 11/20/24 09:45 Source: patient Mode of arrival: ambulatory Limitations: no limitations History of Present Illness HPI narrative: Patient is a 74-year-old female, with past medical history of hypertension, hyperlipidemia, hypothyroidism, who presents to the ED with report of left lower quadrant abdominal pain. Patient states pain began on Sunday afternoon and has progressively worsened since then. No radiation of pain. Denies any other symptoms, denies nausea, vomiting, diarrhea, constipation, fevers, rectal bleeding, melena, urinary complaints. No previous history of similar pain. Related Data Home Medications ?Medication ?Instructions ?Recorded ?Confirmed ?Last Taken ?Type amlodipine 5 mg tablet (Norvasc) 5 mg PO DAILY 08/05/24 11/20/24 Unknown History aspirin 81 mg tablet,delayed 81 mg PO DAILY 08/05/24 11/20/24 Unknown History release atorvastatin 80 mg tablet 80 mg PO QPM 08/05/24 11/20/24 Unknown History ezetimibe 10 mg tablet 10 mg PO DAILY 08/05/24 11/20/24 Unknown History gemfibrozil 600 mg tablet 600 mg PO BID 08/05/24 11/20/24 Unknown History magnesium 2 tablet PO DAILY 08/05/24 11/20/24 Unknown History trazodone 50 mg tablet 50 mg PO QHS 08/05/24 11/20/24 Unknown History Allergies Allergy/AdvReac Type Severity Reaction Status Date / Time No Known Allergies Allergy Verified 11/20/24 09:46 Review of Systems 2 Review of Systems: All systems reviewed & are unremarkable except as noted in HPI. All systems reviewed & are unremarkable except as noted in HPI and below PMFSH Past Medical History Medical History Thyroid disorder Hypertension Heart disease Asthma Allergies Surgical History Surgical History History of bladder surgery History of Achilles tendon repair Family History Family History Mother Heart disease Hypertension Thyroid disorder Father Heart disease Hypertension Thyroid disorder Sibling Heart disease Hypertension Thyroid disorder Sibling Heart disease Hypertension Grandparent Thyroid disorder Hypertension Grandparent Thyroid disorder Hypertension Social History Social History Smoking status: Never smoker Alcohol intake: never Substance use type: does not use Exam 2 Narrative: GENERAL: Well appearing, well-nourished, non-toxic, in no acute distress. HEAD: Normocephalic, atraumatic. RESPIRATORY: Airway patent, respirations nonlabored. Clear to auscultation bilaterally, no rales, rhonchi, wheezing. CARDIOVASCULAR: Regular rate and rhythm without murmurs, rubs, or gallops. ABDOMINAL: Soft, moderate diffuse tenderness throughout left lower abdomen, nondistended. Normoactive BS. MUSCULOSKELETAL: Moves all extremities. No gross deformities. SKIN: Warm, dry, normal color. NEURO: A&O X3. Speech clear. Cranial nerves II-XII grossly intact. Steady gait. No ataxic movements. PSYCHIATRIC: Appropriate mood and affect. Normal interaction. Course Vital Signs Vital signs: Vital Signs Temperature 97.6 F 11/20/24 09:43 Pulse Rate 86 11/20/24 09:43 Respiratory Rate 18 11/20/24 09:43 Blood Pressure 145/93 H 11/20/24 09:43 Pulse Oximetry 97 11/20/24 09:43 Oxygen Delivery Room Air 11/20/24 09:43 Temperature 97.6 F 11/20/24 09:43 Pulse Rate 79 11/20/24 10:57 Respiratory Rate 18 11/20/24 10:57 Blood Pressure 140/90 11/20/24 10:57 Pulse Oximetry 96 11/20/24 10:57 Oxygen Delivery Room Air 11/20/24 09:43 MDM - Abdominal Pain MDM Narrative Medical decision making narrative: Patient presented to ED with several day history of left lower quadrant abdominal pain. No significant associated symptoms. Vital signs are stable upon arrival. Patient afebrile. In no acute distress. Declined pain medication. Was okay with Tylenol. Laboratory studies without leukocytosis or anemia. CMP with mild CKD, appears consistent with previous records. Lipase is very mildly elevated to 460. Patient without epigastric tenderness, nausea, vomiting. Low suspicion for pancreatitis. UA without significant signs of infection. CT scan of abdomen/pelvis was obtained and showing radiographically uncomplicated diverticulitis of descending and sigmoid colon. No perforation or abscess. Consistent with clinical picture. Will start patient on antibiotics for this. Otherwise feel she is safe for discharge home, close outpatient follow-up. Given strict return precautions. She agrees with plan. Discharged in stable condition. Medical Records Attestation: I reviewed the patient's medical records. Lab Data Attestation: I reviewed the patient's lab results. 11/20/24 10:10 11/20/24 10:10 Labs: Lab Results 11/20/24 11/20/24 Range/Units 10:10 10:13 WBC 7.1 (4.5-10.0) K/mm3 RBC 4.47 (4.2-5.4) M/mm3 Hgb 13.4 (12.0-15.0) g/dL Hct 40.1 (37.0-47.0) % MCV 89.7 (80-100) fl MCH 30.0 (26-34) pg MCHC 33.4 (32-36) g/dl RDW 13.5 (11.5-14.5) % Plt Count 364 (150-375) k/mm3 MPV 9.6 (7.4-10.4) fl Immature Gran % (Auto) 0.4 (0-0.5) % Neut % (Auto) 56.8 (45.5-73.1) % Lymph % (Auto) 28.5 (18.3-44.2) % Mellette % (Auto) 9.0 H (2.6-8.5) % Eos % (Auto) 4.2 (0-4.4) % Baso % (Auto) 1.1 (0.2-1.2) % Lymph # (Auto) 2.02 (0.9-3.2) K/mm3 Mellette # (Auto) 0.6 (0.1-0.6) K/mm3 Eos # (Auto) 0.3 (0-0.3) K/mm3 Baso # (Auto) 0.1 (0.0-0.1) K/mm3 Abs Immat Gran (auto) 0.03 (0.00-0.031) K/mm3 Absolute Neuts (auto) 4.0 (1.3-6.7) K/mm3 Absolute Nucleated RBC 0.000 (0.0-0.012) K/mm3 Nucleated RBC % 0.0 (0.0-0.2) % Sodium 140 (137-145) mmol/L Potassium 4.0 (3.4-5.0) mmol/L Chloride 107 (98-107) mmol/L Carbon Dioxide 22 (22-30) mmol/L Anion Gap 11 (4-12) mmol/L BUN 19 H (7-17) mg/dL Creatinine 1.27 H (0.7-1.0) mg/dL Estim Creat Clear Calc 32 ml/min Estimated GFR 41 L (59 - ) Glucose 110 (65-110) mg/dL Calcium 10.3 H (8.4-10.2) mg/dL Total Bilirubin 0.5 (0.2-1.3) mg/dL AST 35 (14-36) U/L ALT 28 (6-35) U/L Alkaline Phosphatase 102 (38-126) U/L Total Protein 7.7 (6.3-8.2) g/dL Albumin 4.5 (3.5-5.1) g/dL Lipase 460 H (23-300) U/L Urine Color Yellow (Yellow) Urine Appearance Clear (Clear) Urine pH 7.0 (5.0-9.0) Ur Specific [place] 1.013 (1.001-1.035) Urine Protein Negative (Negative) mg/dL Urine Glucose (UA) Negative (Negative) mg/dL Urine Ketones Negative (Negative) mg/dL Ur Blood (Man) Negative (Negative) Urine Nitrate Negative (Negative) Urine Bilirubin Negative (Negative) Urine Urobilinogen 0.2 (<2.0) mg/dL Add Ur Microanalysis Reviewed Leukocyte Esterase Rfl 1+ H (Negative) BREONNA/UL Urine RBC 0-2 (0-2) /hpf Urine WBC 0-5 (0-3) /hpf Ur Squamous Epith Cells None seen (Few) /hpf Urine Bacteria None seen /hpf Urine Casts 0-2 Imaging Data Attestation: I personally reviewed and interpreted this imaging study as follows: Radiologist's impression: ITS Impressions Abdomen/Pelvis CT 11/20/24 11:35 IMPRESSION: 1. Radiographically uncomplicated diverticulitis. Discharge Plan Discharge Clinical Impression: Diverticulitis Patient Disposition: Home Condition: Stable Instructions: Antibiotic Form, Diverticulitis (ED), Diverticulitis Diet (ED) Additional Instructions: You were diagnosed with diverticulitis today. Take antibiotics as prescribed. It is important you finish both courses. Continue Tylenol as needed for pain. Stay well hydrated. Recommend low fiber diet while on antibiotics, then gradually increasing fiber supplementation. Follow-up closely with your primary care doctor for further evaluation. Return to the ED if you experience worsening or severe symptoms, unable to keep down food/drink/antibiotics, fevers, or any other symptoms of concern. Patient Language: French Prescriptions: New ciprofloxacin HCl 500 mg tablet 500 mg PO Q12H 7 Days Qty: 14 0RF metronidazole 500 mg tablet 500 mg PO Q8H 7 Days Qty: 21 0RF No Action atorvastatin 80 mg tablet 80 mg PO QPM amlodipine [Norvasc] 5 mg tablet 5 mg PO DAILY ezetimibe 10 mg tablet 10 mg PO DAILY gemfibrozil 600 mg tablet 600 mg PO BID magnesium 2 tablet PO DAILY trazodone 50 mg tablet 50 mg PO QHS aspirin 81 mg tablet,delayed release (DR/EC) 81 mg PO DAILY hydrochlorothiazide 25 mg tablet 25 mg PO DAILY Qty: 90 1RF levothyroxine 75 mcg tablet 75 mcg PO DAILY Qty: 90 1RF mirtazapine 15 mg tablet 15 mg PO DAILY Qty: 90 1RF topiramate 100 mg tablet 100 mg PO DAILY Qty: 90 1RF buspirone 5 mg tablet 5 mg PO TID Qty: 270 1RF losartan 100 mg tablet 100 mg PO DAILY Qty: 90 1RF venlafaxine 225 mg tablet extended release 24hr 225 mg PO QAM Qty: 90 1RF Follow-up/Referrals: Miladys Lock FNP-C [Primary Care Provider] - Time of Disposition: 11:51
[2024-11-20 10:29] LABS: Basophils Absolute Auto 0.1 K/mm3 (0.0-0.1); Basophils Percent Auto 1.1 % (0.2-1.2); Eosinophils Absolute Auto 0.3 K/mm3 (0-0.3); Eosinophils Percent Auto 4.2 % (0-4.4); Hematocrit 40.1 % (37.0-47.0); Hemoglobin 13.4 g/dL (12.0-15.0); Immature Granulocyte Absolute 0.03 K/mm3 (0.00-0.031); Immature Granulocyte Percent A 0.4 % (0-0.5); Lymphocytes Absolute Auto 2.02 K/mm3 (0.9-3.2); Lymphocytes Percent Auto 28.5 % (18.3-44.2); Mean Corpuscular HGB Conc 33.4 g/dl (32-36); Mean Corpuscular Volume 89.7 fl (80-100); Mean Platelet Volume 9.6 fl (7.4-10.4); Monocytes Absolute Auto 0.6 K/mm3 (0.1-0.6); Neutrophils Percent Auto 56.8 % (45.5-73.1); Platelet Count Result 364 k/mm3 (150-375); Red Blood Count 4.47 M/mm3 (4.2-5.4); Red Cell Distribution Width 13.5 % (11.5-14.5); White Blood Count 7.1 K/mm3 (4.5-10.0)
[2024-11-20 10:38] LABS: Alanine Aminotransferase 28 U/L (6-35); Albumin Level 4.5 g/dL (3.5-5.1); Alkaline Phosphatase 102 U/L (38-126); Anion Gap 11 mmol/L (4-12); Aspartate Amino Transferase 35 U/L (14-36); Bilirubin,Total 0.5 mg/dL (0.2-1.3); Blood Urea Nitrogen 19 mg/dL (7-17); Calcium 10.3 mg/dL (8.4-10.2); Carbon Dioxide 22 mmol/L (22-30); Chloride 107 mmol/L (98-107); Estimated CRCL calculation 32 ml/min; Estimated Glomerular Filt Rate 41; Glucose 110 mg/dL (65-110); Lipase 460 U/L (23-300); Sodium 140 mmol/L (137-145); Total Protein 7.7 g/dL (6.3-8.2)
[2024-11-20 10:40] LABS: Add Urine Microscopic? YES; Appearance Urine Clear (Clear); Bacteria Urine None Seen /hpf; Bilirubin Urine Negative (Negative); Blood Urine Negative (Negative); Color Urine Yellow (Yellow); Glucose Urine UA Negative (Negative); Ketones Urine Negative (Negative); Leukocyte Esterase Ur 1+ LEU/UL (Negative); Need Manual Microscopic Reviewed; Nitrate Urine Negative (Negative); Non Pathogenic Casts 0-2; Protein Urine Negative (Negative); RBC Urine 0-2 /hpf (0-2); Specific Grav Ur 1.013 (1.001-1.035); Squamous Epithelial Cell Urine None Seen /hpf (Few); Urobilinogen Urine 0.2 mg/dL (<2.0); WBC Urine 0-5 /hpf (0-3)
[2024-11-20] MEDS: ACETAMINOPHEN 500 MG TABLET 1000 MG PO (10:55)
[2024-11-20 10:57] VITALS: BP 140/90; PULSE 79; RESP 18; O2SAT 96
--- OUTSIDE RECORDS SUMMARY | 2024-11-20 11:09 | XMS_ITS | Clinical Summary ---
Author Organization [facility] Address [address] [place] [address] Phone Care Team Providers Care Manufactured Buildings Repairer Name Role Phone Unavailable Primary Care Provider [...] migh t be different from the original. [facility] 08-11-16 MLM Richard-SPOUSE, KEL BORGES-DAUGHTER Material Chaser[facility] Martel Problem Noted Date [...] Encounters Date Type Department Care Team Description 11/18/2024 External Device Data STL ABSTRACTION Provider, Abstract 10/04/2024 [facility] [address] [place] [address] Gloria Campbell MD Benign hypertension with stage 3b chronic kidney disease ([facility]/HCC) 09/29/2024 Refill [facility] [address] [place] [address] Gloria Campbell MD Situational anxiety; Major depressive disorder, recurrent, moderate (CMS/HCC) 08/27/2024 [facility] [address] [place] [address] Gloria Campbell MD Obesity (BMI 30.0-34.9) from Last 3 Months Immunizations Immunization Administration Dates Next Due (ADACEL/BOOSTRIX)(10 YR UP) TDAP VACCINE, 0.5ML, IM 02/02/2018 (HAVRIX/VAQTA)(19 YRS UP) HE PATITIS A VACCINE ADULT DOSAGE 1 ML IMM 04/27/2020,03/20/2019 (PFIZER)(12 YR UP) COVID-19 VACCINE - EMERGENCY USE AUTHORIZATION, MRNA, [id number](PF) 30 MCG/0.3 ML IM SUSP 03/16/2021,08/28/2020,08/07/2020 (PNEUMOVAX [...] on file 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 Gender Identity Not on file Sexual [...] 03/06/20 23, 02/14/2023, 07/30/2018, Additional history exists COLORECTAL SCREENING 04/24/2027 04/24/2022, 04/24/2022, 04/02/2019, Additional history exists Colorectal Cancer Screening 04/24/2027 DTAP/TDAP/TD VACCINES (2 - T d or Tdap) 02/03/2028 02/02/2018 OSTEOPOROSIS SCREENING 02/15/2028 02/14/2023, 2018 PNEUMOCOCCAL VACCINE 50+ YEARS Completed 0 01/16/2022, 01/07/2016, 09/16/2010 Procedures Procedure Name Priority Date/Time Associated Diagnosis Comments MAMMO DIAG UNI RIGHT 3D LIZETH W OR WO CAD Routine 03/06/2023 1:47 PM CDT Abnormal mammogram of right breast Breast asymmetry XR DEXA BONE DENSITY AXIAL 1 OR MORE SITES Routine 02/14/2023 10:47 AM CDT Osteopenia of multiple sites Postmenopausal COLONOSCOPY REPORT 04/24/2022 9: 22 AM INTERNATIONAL TRADE COMPLIANCE MANAGER from Last 3 Months or Most Recently [...] mammography is recommended. DICTATION LOCATION: [facility] Narrative 03/06/2023 2:58 PM CDT RIGHT UNILATERAL FULL-FIELD [...] Recommendation: Annual mammography is recommended. DICTATION LOCATION: [facility] us Gloria Campbell MD MAMMO ORDERABLES [...] and every 2 years thereafter TREATMENT: NOF Diamond recommendations: 1. Adequate intake of Calcium and [...] at www.shef.ac.uk/FRAX/tool.aspx DICTATION LOCATION: Location 2 - [facility] Narrative 02/14/2023 11:40 AM CDT EXAM: XR DEXA BONE DENSITY AXIAL 1 OR MORE SITES DATE: 02/14/2023 10:47 AM HISTORY: 72-year-old woman with osteopenia TECHNIQUE: Planar images were obtained of the lumbar spine and left hip using a Hologic DEXA scanner for bone mineral density determination PERFORMING LOCATION: [place], [place], [address] QUALITY OF EXAM: [...] hip fracture is 2.6%. Procedure Note Samantha Rizzo MD - 02/14/2023 EXAM: XR DEXA BONE DENSITY AXIAL 1 OR MORE SITES DATE: 02/14/2023 10:47 AM HISTORY: 72-year-old woman with osteopenia TECHNIQUE: Planar images were obtained of the lumbar spine and left hip using a Hologic DEXA scanner for bone mineral density determination PERFORMING LOCATION: [facility] [address] QUALITY OF EXAM: L4 [...] and every 2 years thereafter TREATMENT: NOF Diamond recommendations: 1. Adequate intake of Calcium and [...] be found at www.shef.ac.uk/FRAX/tool.aspx DICTATION LOCATION: Location [address] [place] [address] Gloria Campbell MD DIAGNOSTIC IMAGING O RDERABLES Final Result * COLONOSCOPY REPORT (04/24/2022 9:22 AM INTERNATIONAL TRADE COMPLIANCE MANAGER) Narrative Procedure Note Neal Martel MD - [...] for surveillance. Procedure Code(s): --- Professional --- 85926 Diagnosis Code(s): --- Professional --- Z86.010 K57.30 CPT copyright 2020 [employer]. All rights reserved. The codes documented in this report are preliminary and upon nuclear security officer review may be revised to meet current compliance requirements. Neal Martel MD 04/24/2022 9:21:31 AM This report has been signed electronically. Number of Addenda: [id number], [place] [id number] Neal Martel MD GI PROCEDURE ORDERABL ES Final Result from Last 3 Months or Most Recently Relevant to Health Maintenance Insurance Medicare Part D [address] [place] [id number] Advance Directives For more information, please contact: [phone] * Full Code (Latest Code Status on File) Date Activated Date Inactivated Comments 04/24/2022 7:46 AM 04/24/2022 12:01 PM * Full Code Date Activated Date Inactivated Comments 02/07/2018 7:34 AM 02/07/2018 2:33 PM
--- OUTSIDE RECORDS SUMMARY | 2024-11-20 11:09 | XMS_ITS | Encounter Summary ---
Author Organization [facility] Address 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
--- OUTSIDE RECORDS SUMMARY | 2024-11-20 11:09 | XMS_ITS | Encounter Summary ---
Author Organization [facility] Address [address] [place] [address] Care Team Providers Care Patent Law Specialist Name Role Phone Gloria Campbell MD Primary Care Provid er Encounter Details Date Type Department Care Team (Late st Contact Info) Description 08/24/2006 Outpatient Historical [facility] Support Services Cardiac [address] [place] [address] Neal Acevedo MD [address] [place] [address] Social History Tobacco Use Types Packs/Day Years Used Date Smoking Tobacco: Never Assessed Comments Unknown Sex and Gender Information Value Date Recorded Sex Assigned at Not on file Legal Sex Female 3:03 AM RELATIONS LIAISON Gender Identity Not on file Sexual Orientation Not on file documented as of this encounter Plan of Treatment Not on file documented as of this encounter Visit Diagnoses Not on filedocumented in this encounter Care Teams Patent Law Specialist Relationship Specialty Start Date End Date Gloria Campbell MD [address] [place] [address] PCP - General 08/01/12 07/10/24 documented as of this encounter
--- OUTSIDE RECORDS SUMMARY | 2024-11-20 11:09 | XMS_ITS | Encounter Summary ---
Author Organization [facility] Address 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; Hypertensive chronic [...] on file Legal Sex Female 3:03 AM TAXATION AGENT Gender Identity Not on file Sexual Orientation [...] 9:35 AM CDT 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 Hypertensive chronic kidney disease with stage 1 through stage 4 chronic kidney disease, or unspecified chronic kidney disease Other chest pain Shortness of breath BRAIN NATRIURETIC PEPTIDE, BNP OR PROBNP Stat 11/12/2023 9:35 AM CDT 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 Hypertensive chronic kidney disease with stage 1 through stage 4 chronic kidney disease, or unspecified chronic kidney disease Other chest pain Shortness of breath documented in this encounter Results * BRAIN NATRIURETIC PEPTIDE, BNP OR PROBNP (11/12/2023 9:35 AM CDT) PROBNP, N TERMINAL 101 <124 pg/mL 2023 11:36 AM CDT [facility] Comment: Reference values for screening purposes based on post acute care nurse practitioner's recommendation: Patients less than 75 years: <125 [...] Gloria Campbell MD CHEMISTRY ORDERABLES Final Result [facility] am[facility] CLIA# [id number] [address] [place] [address] * D-DIMER (11/12/2023 9:35 AM CDT) D-DIMER QUANT <0.27 <0.50 ug/mL FEU 11/12/2023 11:37 AM CDT [facility] Blood 11/12/2023 9:35 AM CDT 11/12/2023 11:20 AM CDT Narrative [facility] - 11/12/2023 11:37 AM CDT D-Dimer assay [...] Campbell MD HEMATOLOGY ORDERABLE S Final Result [facility] CLIA# [id number] 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
--- OUTSIDE RECORDS SUMMARY | 2024-11-20 11:09 | XMS_ITS | Encounter Summary ---
Author Organization [facility] Address [address] [place] [address] Care Team Providers Care Supervisor Hand Workers Name Role Phone Gloria Campbell MD Primary [...] on file Legal Sex Female 3:03 AM TITLE SEARCH MANAGER Gender Identity Not on file Sexual [...] IGE (01/31/2008 2:00 PM CDT) IGE 8 <IM=161 kU/L [facility] Comment: Lab test performed by: Intr[facility] [place] [id number] [address] [id number] ROBER FRAZIER MD Blood specimen (specimen) 01/31/2008 2:00 PM CDT 01/31/2008 2:01 PM CDT Narrative INTERFACE SYSTEM - 02/04/2008 8:07 PM CDT Call [phone] us History Conversion CHEMISTRY ORDERABLES Final Re sult INTERFACE SYSTEM Refer to clinic/hospital department [facility] CLIA# [id number] [address] [place] [address] * XR SINUSES 3+ VW (01/31/2008 1:15 PM CDT) Anatomical Region Laterality Modality Head Other 01/31/2008 1:15 PM CDT Narrative 01/31/2008 4:32 PM CDT [address] [address] Admit Date: 01/31/2008 DILLONCARLOS eMierINE Sex: F Admit Prov: DOCTOR, NOT O Date: 1950 Primary Care Prov: CLINT GARZA CMRN: [id number] Room: LAB-B SSN: [id number] IMAGING SERVICES Ordering Prov: N/A Accession Number: [id number] Interpretation SINUSES COMPLETE 01/31/2008 History: Allergy. 3 [...] Procedure Note Baljit Jimenes DO - 01/31/[address] [address] Admit Date: 01/31/2008 ANURAG CARRANZA Sex: F Admit Prov: DOCTOR, NOT O Date: 1950 Primary Care Prov: CLINT GARZA CMRN: [id number] Room: LAB-B SSN: [id number] IMAGING SERVICES Ordering Prov: N/A Interpretation SINUSES [...] PM CDT Narrative 01/31/2008 2:20 PM CDT [place] [address] Admit Date: 01/31/2008 ANURAG CARRANZA Sex: F Admit Prov: DOCTOR, NOT O Date: 1950 Primary Care Prov: CLINT GARZA CMRN: [id number] Room: LAB-B SSN: [id number] IMAGING SERVICES Ordering Prov: N/A Accession Number: [id number] Interpretation CHEST, PA AND LATERAL, 01/31/08 History: 493.90, asthma. Findings: No infiltrate, pleural effusion or pneumothorax is present. Heart size, mediastinum and pulmonary vascularity are normal. Impression: No active pulmonary disease. . Dictated by: PHUC LOMELI 01/31/2008 13:34 Electronically signed by: PHUC LOMELI 01/31/2008 14:19 Transcribed: 01/31/2008 13:41 LE Procedure Note Phuc Lomeli MD - 01/31/2008 [facility] [address] [address] Admit Date: 01/31/2008 ANURAG CARRANZA Sex: F Admit Prov: DOCTOR, NOT O Date: 1950 Primary Care Prov: CLINT GARZA CMRN: [id number] [facility] [id number] [facility] Ordering Prov: N/A Interpretation CHEST, [...] asthma documented in this encounter Care Teams Supervisor Hand Workers Relationship Specialty Start Date End Date Gloria Campbell MD [address] [place] [address] PCP - General 08/01/12 07/10/24 documented as of this encounter
--- OUTSIDE RECORDS SUMMARY | 2024-11-20 11:09 | XMS_ITS | Encounter Summary ---
Author Organization [facility] Address [address] [place] [address] Care Team Providers Care Aircraft Electrical Systems Specialist Name Role Phone Gloria Campbell MD Primary Care Provid er Encounter Details Date Type Department Care Team (Late st Contact Info) Description 08/24/2006 Outpatient Historical [facility] Juan Oates MD [address] [place] [address] [place] [id number] Cervicalgia (Primary Dx) Social History Tobacco Use Types Packs/Day Years Used Date Smoking Tobacco: Never Assessed Comments Unknown Sex and Gender Information Value Date Recorded Sex Assigned at Not on file Legal Sex Female 3:03 AM INCOME TAX INVESTIGATOR Gender Identity Not on file Sexual Orientation Not on file documented as of this encounter Plan of Treatment Not on file documented as of this encounter Visit Diagnoses Diagnosis Cervicalgia- Primary documented in this encounter Care Teams Aircraft Electrical Systems Specialist Relationship Specialty Start Date End Date Gloria Campbell MD [address] [place] [phone] PCP - General 08/01/12 07/10/24 documented as of this encounter
--- OUTSIDE RECORDS SUMMARY | 2024-11-20 11:09 | XMS_ITS | Encounter Summary ---
Author Organization [employer] Address 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 These are dated 04/29/1999. The current study shows some asymmetrically dense tissue superiorly on the oblique view. Pattern is unchanged since 1998. There is no evidence of malignancy. Conclusion: No mammographic evidence of malignancy No change since films from [place], [place] dated April 1999. Recommendations: The patient [...] F Admitting MD: JUAN OATES Birthdate: 1950 lead caregiver:JUAN OATES CMRN:[id number] Room: [facility]: [phone] [place] [address] Imaging Services Procedure Completion Date Ordering Provider Accession Number Mamm Digital 10/17/2007 9:14:36 JUAN OATES [id number] Screening AM utilized. No prior studies are [...] F Admitting MD: JUAN OATES Birthdate: 1950 lead caregiver:JUAN OATES CMRN:[id number] Room: [facility]: [phone] Procedure Note Giselle Olson / Jeramie To MD - 10/24/[address] [address] Imaging Services Procedure Completion Date Ordering Provider AccessionNumber Mamm Digital 10/17/2007 9:14:36 JUAN OATES [id number] Screening AM Reason for Exam: V76.12 - SCREEN MAMMOGRAM NEC Addendum Since the prior report, [place]. These are dated106/29/1998. The current study shows some asymmetrically dense tissue superiorlyon the oblique view. Pattern is unchanged since 1998. There is no evidenceof malignancy. Conclusion: No mammographic evidence of malignancy No change since films from [place], [place] dated April1999. Recommendations: The patient should [...] F Admitting MD: JUAN OATES Birthdate: 1950 lead caregiver[id number]: [phone] [facility] [address] [place] [id number] Imaging Services Procedure Completion Date Ordering Provider AccessionNumber Mamm Digital 10/17/2007 9:14:36 JUAN OATES [id number] Screening AM utilized. No prior studies are [...] F Admitting MD: JUAN OATES Birthdate: 1950 lead caregiver:JUAN OATES CMRN:[id number] Room: [facility]: [phone] Juan Oates MD MAMMO ORDERABLES Edited documented in this encounter Visit Diagnoses Diagnosis Other screening mammogram documented in this encounter Care Teams Salesperson [employer] Relationship Specialty Start Date End Date Gloria Campbell MD [address] [place] [address] PCP - General 08/01/12 07/10/24 documented as of this encounter
--- OUTSIDE RECORDS SUMMARY | 2024-11-20 11:09 | XMS_ITS | Encounter Summary ---
Author Organization [employer] Address 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
== END 2024-11-20 12:18 | disposition home or self-care (01) ==
PROVIDERS: Emergency Provider Physician Assistant; PCP Clinical Nurse Specialist
DX: K57.32 Diverticulitis of large intestine without perforation or abscess without bleeding (principal); I11.9 Hypertensive heart disease without heart failure; E78.5 Hyperlipidemia, unspecified; E03.9 Hypothyroidism, unspecified; E07.9 Disorder of thyroid, unspecified; J45.909 Unspecified asthma, uncomplicated
CPT/HCPCS: 36415; 74177; 80053; 81001; 83690; 85025; 87086; 99284; A9270; Q9967

== ENCOUNTER 2025-03-04 12:40 | Outpatient (CLI) | payer MEDICARE, SELFPAY ==
--- OUTSIDE RECORDS SUMMARY | 2025-03-04 12:43 | XMS_ITS | Encounter Summary ---
Author Organization [employer] Address 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
--- OUTSIDE RECORDS SUMMARY | 2025-03-04 12:43 | XMS_ITS | Encounter Summary ---
Author Organization [facility] Address [address] [place] [address] Care Team Providers Care Nurseryperson Name Role Phone Gloria Campbell MD Primary Care Provid er Encounter Details Date Type Department Care Team (Late st Contact Info) Description 08/24/2006 Outpatient Historical [facility] Support Services Cardiac E 5th [address] [place] [address] Neal Acevedo MD 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
--- OUTSIDE RECORDS SUMMARY | 2025-03-04 12:43 | XMS_ITS | Encounter Summary ---
Author Organization [facility] Address 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 These are dated 04/29/1999. The current study shows some asymmetrically dense tissue superiorly on the oblique view. Pattern is unchanged since 1998. There is no evidence of malignancy. Conclusion: No mammographic evidence of malignancy No change since films from [place], [place] dated April 1999. Recommendations: The patient [...] F Admitting MD: JUAN OATES Birthdate: 1950 client services coordinator:JUAN OATES CMRN:[id number] Room: [facility]: [phone] [place] [address] Imaging Services Procedure Completion Date Ordering Provider Accession Number Mamm Digital 10/17/2007 9:14:36 JUAN OATES [id number] Screening AM utilized. No prior studies are [...] F Admitting MD: JUAN OATES Birthdate: 1950 client services coordinator:JUAN OATES CMRN:[id number] Room: [facility]: [phone] Procedure Note Giselle Olson / Jeramie To MD - 10/24/[address] [address] Imaging Services Procedure Completion Date Ordering Provider AccessionNumber Mamm Digital 10/17/2007 9:14:36 JUAN OATES [id number] Screening AM Reason for Exam: V76.12 - SCREEN MAMMOGRAM NEC Addendum Since the prior report, the [place] for review. These are dated106/29/1998. The current study shows some asymmetrically dense tissue superiorlyon the oblique view. Pattern is unchanged since 1998. There is no evidenceof malignancy. Conclusion: No mammographic evidence of malignancy No change since films from [place], [place] dated April1999. Recommendations: The patient should [...] F Admitting MD: JUAN OATES Birthdate: 1950 client services coordinator[facility]ATES [id number] Room: [facility]: [phone] [facility] [address] [place] [address] Imaging Services Procedure Completion Date Ordering Provider AccessionNumber Mamm Digital 10/17/2007 9:14:36 JUAN OATES [id number] Screening AM utilized. No prior studies are [...] F Admitting MD: JUAN OATES Birthdate: 1950 client services coordinator:JUAN OATES CMRN:[id number] Room: [facility]: [phone] Juan Oates MD MAMMO ORDERABLES Edited documented in this encounter Visit Diagnoses Diagnosis Other screening mammogram documented in this encounter Care Teams Screening Unit Registered Nurse Relationship Specialty Start Date End Date Gloria Campbell MD [address] [place] [address] PCP - General 08/01/12 07/10/24 documented as of this encounter
--- OUTSIDE RECORDS SUMMARY | 2025-03-04 12:43 | XMS_ITS | Encounter Summary ---
Author Organization [facility] Address 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 Gender Identity Not on file Sexual Orientation [...] 9:35 AM CDT Atherosclerotic heart disease of [place] coronary artery without angina pectoris Hypertensive chronic kidney disease with stage 1 through stage 4 chronic kidney disease, or unspecified chronic kidney disease Other chest pain Shortness of breath BRAIN NATRIURETIC PEPTIDE, BNP OR PROBNP Stat 11/12/2023 9:35 AM CDT Atherosclerotic heart disease of [place] coronary artery without angina pectoris Hypertensive chronic kidney disease with stage 1 through stage 4 chronic kidney disease, or unspecified chronic kidney disease Other chest pain Shortness of breath documented in this encounter Results * BRAIN NATRIURETIC PEPTIDE, BNP OR PROBNP (11/12/2023 9:35 AM CDT) PROBNP, N TERMINAL 101 <124 pg/mL 2023 11:36 AM CDT [facility] Comment: Reference values for screening purposes based on agency recruiter's recommendation: Patients less than 75 years: <125 [...] Gloria Campbell MD CHEMISTRY ORDERABLES Final Result [facility] CLIA# [id number] [address] [place] [address] * D-DIMER (11/12/2023 9:35 AM CDT) D-DIMER QUANT <0.27 <0.50 ug/mL FEU 11/12/2023 11:37 AM CDT [facility] Blood 11/12/2023 9:35 AM CDT 11/12/2023 11:20 AM CDT Narrative [facility] - 11/12/2023 11:37 AM CDT D-Dimer [...] Campbell MD HEMATOLOGY ORDERABLE S Final Result [facility] CLIA# [id number] [address] [place] [address] documented in this encounter Visit Diagnoses Diagnosis Atherosclerotic heart disease [place] coronary artery without angina pectoris Coronary atherosclerosis [place] coronary artery Hypertensive chronic kidney disease with stage 1 through stage 4 chronic kidney disease, or unspecified chronic kidney disease Other chest pain Shortness of breath documented in this encounter Additional Health Concerns Assessment Noted Time PHQ-9 Depression Total Score: 2 10/08/19 24 8:49 AM CDT documented as of this encounter Care Teams Residency Director Relationship Specialty Start Date End Date Gloria Campbell MD [address] [place] [address] PCP - General 08/01/12 07/10/24 documented as of this encounter
--- OUTSIDE RECORDS SUMMARY | 2025-03-04 12:43 | XMS_ITS | Clinical Summary ---
Author Organization [facility] Address [address] [place] [address] Phone Care Team Providers Care Accounting Analyst Name Role Phone Unavailable Primary Care Provider [...] migh t be different from the original. [facility] 08-11-16 MLM Richard-SPOUSE, KEL BORGES-DAUGHTER Manager Of International-[facility] Neal Martel Problem [...] Encounters Date Type Department Care Team Description 01/07/2025 External Device Data ST[facility] ABSTRACTION Provider, Abstract 01/06/2025 [facility] Primary Care - [address] [place] [address] Gloria Campbell MD 12/17/2024 External Device Data [place] ABSTRACTION Provider, Abstract 12/16/2024 External Device Data [place] ABSTRACTION Provider, Abstract from Last 3 Months Immunizations Immunization Administration Dates Next Due (ADACEL/BOOSTRIX)(10 YR UP) TDAP VACCINE, 0.5ML, IM 02/02/2018 (HAVRIX/VAQTA)(19 YRS UP) HE PATITIS A VACCINE ADULT DOSAGE 1 ML IMM 04/27/2020,03/20/2019 (PFIZER)(12 YR UP) COVID-19 VACCINE - EMERGENCY USE AUTHORIZATION, MRNA, [id number](PF) 30 MCG/0.3 ML IM SUSP 03/16/2021,08/28/2020,08/07/2020 (PNEUMOVAX [...] on file 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 DICTATION LOCATION: [facility] 03/06/2023 2:58 PM CDT RIGHT UNILATERAL [...] Recommendation: Annual mammography is recommended. DICTATION LOCATION: [facility] Gloria Campbell MD MAMMO ORDERABLES Fin al [...] and every 2 years thereafter TREATMENT: NOF [place] recommendations: 1. Adequate intake of Calcium and [...] at www.shef.ac.uk/FRAX/tool.aspx DICTATION LOCATION: Location 2 - [facility] Narrative 02/14/2023 11:40 AM CDT EXAM: XR DEXA BONE DENSITY AXIAL 1 OR MORE SITES DATE: 02/14/2023 10:47 AM HISTORY: 72-year-old woman with osteopenia TECHNIQUE: Planar images were obtained of the lumbar spine and left hip using a Hologic DEXA scanner for bone mineral density determination PERFORMING LOCATION: [place], [place], [address] QUALITY OF EXAM: [...] for bone mineral density determination PERFORMING LOCATION: [facility] [employer] QUALITY OF EXAM: L4 was considered an [...] and every 2 years thereafter TREATMENT: NOF [place] recommendations: 1. Adequate intake of Calcium and [...] can be found at www.shef.ac.uk/FRAX/tool.aspx DICTATION LOCATION: [address] Gloria Campbell MD DIAGNOSTIC IMAGING O RDERABLES Final Result * COLONOSCOPY REPORT (04/24/2022 9:22 AM BARGE WORKER) Narrative Procedure Note Neal Martel MD - [...] for surveillance. Procedure Code(s): --- Professional --- 09546 Diagnosis Code(s): --- Professional --- Z86.010 K57.30 CPT copyright 2020 [employer]. All rights reserved. The codes documented in this report are preliminary and upon java web engineer review may be revised to meet current compliance requirements. Neal Martel MD 04/24/2022 9:21:31 AM This report has been signed electronically. Number of Addenda: [id number], [place] [id number] Neal Martel MD GI PROCEDURE ORDERABL ES Final Result from Last 3 Months or Most Recently Relevant to Health Maintenance Insurance [facility] [id number] RX [facility] Medicare Part D Advance Directives For more information, please contact: [phone] * Full Code (Latest Code Status on File) Date Activated Date Inactivated Comments 04/24/2022 7:46 AM 04/24/2022 12:01 PM * Full Code Date Activated Date Inactivated Comments 02/07/2018 7:34 AM 02/07/2018 2:33 PM
--- OUTSIDE RECORDS SUMMARY | 2025-03-04 12:43 | XMS_ITS | Encounter Summary ---
Author Organization [employer] Address 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
--- OUTSIDE RECORDS SUMMARY | 2025-03-04 12:43 | XMS_ITS | Encounter Summary ---
Author Organization [facility] Address [address] [place] [address] Care Team Providers Care Cover Remover Name Role Phone Gloria Campbell MD Primary [...] on file Legal Sex Female 3:03 AM [employer] Gender Identity Not on file Sexual Orientation [...] IGE (01/31/2008 2:00 PM CDT) IGE 8 <WX=466 kU/L [facility] Comment: Lab test performed by: [employer] [id number] [id number] ROBER FRAZIER MD Blood specimen (specimen) 01/31/2008 2:00 PM CDT 01/31/2008 2:01 PM CDT Narrative INTERFACE SYSTEM - 02/04/2008 8:07 PM CDT Call [phone] us History Conversion CHEMISTRY ORDERABLES Final Re sult INTERFACE SYSTEM Refer to clinic/hospital department [facility] CLIA# [id number] [address] [place] [address] * XR SINUSES 3+ VW (01/31/2008 1:15 PM CDT) Anatomical Region Laterality Modality Head Other 01/31/2008 1:15 PM CDT Narrative 01/31/2008 4:32 PM CDT [address] [address] Admit Date: 01/31/2008 DILLONCARLOS MeierINE Sex: F Admit Prov: DOCTOR, NOT O Date: 1950 Primary Care Prov: CLINT GARZA CMRN: [id number] Room: LAB-B SSN: [id number] IMAGING SERVICES Ordering Prov: N/A Accession Number: [id number] Interpretation SINUSES COMPLETE 01/31/2008 History: Allergy. 3 [...] Procedure Note Baljit Jimenes DO - 01/31/[address] [address] Admit Date: 01/31/2008 ANURAG CARRANZA Sex: F Admit Prov: DOCTOR, NOT O Date: 1950 Primary Care Prov: CLINT GARZA CMRN: [id number] Room: LAB-B SSN: [id number] IMAGING SERVICES Ordering Prov: N/A Interpretation SINUSES [...] PM CDT Narrative 01/31/2008 2:20 PM CDT [place] [address] Admit Date: 01/31/2008 ANURAG CARRANZA Sex: F Admit Prov: DOCTOR, NOT O Date: 1950 Primary Care Prov: CLINT GARZA CMRN: [id number] Room: LAB-B SSN: [id number] IMAGING SERVICES Ordering Prov: N/A Accession Number: [id number] Interpretation CHEST, PA AND LATERAL, 01/31/08 History: 493.90, asthma. Findings: No infiltrate, pleural effusion or pneumothorax is present. Heart size, mediastinum and pulmonary vascularity are normal. Impression: No active pulmonary disease. . Dictated by: PHUC LOMELI 01/31/2008 13:34 Electronically signed by: PHUC LOMELI 01/31/2008 14:19 Transcribed: 01/31/2008 13:41 LE Procedure Note Phuc Lomeli MD - 01/31/2008 [facility] [address] [address] Admit Date: 01/31/2008 ANURAG CARRANZA Sex: F Admit Prov: DOCTOR, NOT O Date: 1950 Primary Care Prov: CLINT GARZA CMRN: [id number] [facility]: [id number] IMAGING SERVICES Ordering Prov: N/A Interpretation CHEST, [...] asthma documented in this encounter Care Teams Cover Remover Relationship Specialty Start Date End Date Gloria Campbell MD [address] [place] [address] PCP - General 08/01/12 07/10/24 documented as of this encounter
[2025-03-04 19:48] LABS: Alanine Aminotransferase 40 U/L (6-35); Albumin Level 4.3 g/dL (3.5-5.1); Alkaline Phosphatase 129 U/L (38-126); Anion Gap 9 mmol/L (4-12); Aspartate Amino Transferase 59 U/L (14-36); Bilirubin,Total 0.8 mg/dL (0.2-1.3); Blood Urea Nitrogen 16 mg/dL (7-17); Calcium 9.3 mg/dL (8.4-10.2); Carbon Dioxide 26 mmol/L (22-30); Chloride 99 mmol/L (98-107); Estimated Glomerular Filt Rate 41; Glucose 139 mg/dL (65-110); Potassium 3.5 mmol/L (3.4-5.0); Sodium 134 mmol/L (137-145); Total Protein 6.9 g/dL (6.3-8.2)
[2025-03-04 20:11] LABS: MALB Creatinine Ratio 8.3 mg/g (0-30)
[2025-03-04 20:31] LABS: Hemoglobin A1C 6.3 % (<5.7)
== END 2025-03-04 12:41 | disposition home or self-care (01) ==
PROVIDERS: PCP Clinical Nurse Specialist; Visit Provider Clinical Nurse Specialist
DX: R73.01 Impaired fasting glucose (principal); I10 Essential (primary) hypertension
CPT/HCPCS: 36415; 80053; 82043; 83036